=== PATIENT | male | born 1960 | race African-American/Black ===

== ENCOUNTER 2018-02-17 01:22 | Emergency (ER) | payer MEDICAID ==
[~2018-02-17] VITALS: Ht 177.8 cm; Wt 88.5 kg
[~2018-02-17 01:22] MED LIST: ALEVE220 M2 PO; CIPROFLOXACIN500 M2 ORAL; HYDROCODON-ACE1 EA15 ORAL; METRONIDAZOLE500 MG ORAL; PEPTO-BISMOL262 MG PO
--- NOTE | 2018-02-17 01:37 | Emergency Room Report ---
History of Present Illness General Chief Complaint: To Be Triaged Source: Patient Present Illness HPI Is a 57-year-old male with no past medical history. He said he is pretty active with doing yoga and triathlon. He presents with chief complaint of chest pain. Onset was about 4-5 hours ago. Described the pain as pressure- like left chest area. Took Zantac without relief. He came in because he has achiness and pain to the left arm area. No nausea no vomiting but no fever chills but no diaphoresis. No exertional component. He took 2 full dose aspirin at around 10:30 PM. Allergies: Coded Allergies: No Known Allergies (Unverified , 04/07/14) Patient History Past Medical History: see triage record, old chart reviewed Past Surgical History: none Pertinent Family History: other - early CAD Social History: Denies: smoking Immunizations: other Reviewed Nursing Documentation: PMH: Agreed; PSxH: Agreed Review of Systems Eye: Denies: eye pain, blurred vision ENT: Denies: ear pain, nose congestion, throat swelling Respiratory: Denies: cough, shortness of breath Cardiovascular: Reports: chest pain; Denies: palpitations Gastrointestinal: Denies: abdominal pain, diarrhea, nausea, vomiting Musculoskeletal: Denies: back pain, joint pain Skin: Denies: rash Neurological: Denies: headache, numbness Endocrine: Denies: increased thirst, increased urine Hematologic/Lymphatic: Denies: easy bruising All Other Systems: negative except mentioned in HPI Physical Exam Sp02 EP Interpretation: reviewed, normal General Appearance: well appearing, no apparent distress, alert Head: normocephalic, atraumatic Eyes: bilateral eye PERRL, bilateral eye EOMI ENT: hearing grossly normal, normal pharynx Neck: full range of motion, supple, no meningismus Respiratory: chest non-tender, lungs clear, normal breath sounds Cardiovascular #1: regular rate, rhythm, no murmur Gastrointestinal: normal bowel sounds, non tender, no mass, no organomegaly, no bruit, non-distended Musculoskeletal: back normal, gait/station normal, normal range of motion Psychiatric: mood/affect normal Skin: warm/dry Medical Decision Making Diagnostic Impression: Primary Impression: Chest pain Qualified Codes: R07.9 - Chest pain, unspecified ER Course Patient with atypical chest pain. 2 sets of troponin negative. No evidence of EKG changes. We will discharge home. No evidence of ACS, PE, dissection to name a few. Lab Results Impression labs normal EKG Diagnostic Results Rate: normal Rhythm: NSR ST Segments: no acute changes ASA given to the pt in ED: No - pt took 2 full aspirin at home Rhythm Strip Diag. Results Rhythm Strip Time: 01:37 EP Interpretation: yes Rate: 80 Rhythm: NSR, no PVC's, no ectopy Chest X-Ray Diagnostic Results Chest X-Ray Diagnostic Results : Chest X-Ray Ordered: Yes # of Views/Limited/Complete: 1 View Indication: Chest Pain EP Interpretation: Yes Interpretation: no consolidation, no effusion, no pneumothorax, no acute cardiopulmonary disease Impression: No acute disease Electronically Signed by: Brady Winchester MD Status: improved Disposition: HOME, SELF-CARE Condition: Stable Additional Instructions: Follow-up with your doctor within a week. You may benefit from outpatient stress tests or cardiology consult. Return if symptom worsen. BRADY WINCHESTER M.D. February 17, 2018 01:37
[2018-02-17] MEDS ORDERED: Nitroglycerin Subl 0.4mg tab SL PRN (01:45)
[2018-02-17 01:50] VITALS: BP 137/90
[2018-02-17 01:50] LABS: BASOPHILS % (AUTO) 1.9 % (0.0-2.0); EOSINOPHILS % (AUTO) 2.6 % (0.0-3.0); HEMATOCRIT 44.4 % (42.0-52.0); HEMOGLOBIN 15.2 G/DL (14.2-18.0); LYMPHOCYTES % (AUTO) 45.3 % (20.0-45.0); MEAN CORPUSCULAR VOLUME 91 FL (80-99); MONOCYTES % (AUTO) 9.4 % (1.0-10.0); NEUTROPHILS % (AUTO) 40.8 % (45.0-75.0); PLATELET COUNT 271 K/UL (150-450); RED BLOOD COUNT 4.88 M/UL (4.70-6.10); RED CELL DISTRIBUTION WIDTH 11.9 % (11.6-14.8); WHITE BLOOD COUNT 5.1 K/UL (4.8-10.8)
[2018-02-17 02:04] LABS: ANION GAP 9 mmol/L (5-15); BLOOD UREA NITROGEN 16 mg/dL (7-18); CARBON DIOXIDE 29 MMOL/L (21-32); CHLORIDE 102 MMOL/L (98-107); CREATININE 1.4 MG/DL (0.55-1.30); POTASSIUM 3.7 MMOL/L (3.5-5.1); SODIUM 140 MMOL/L (136-145)
[2018-02-17 02:17] LABS: ALANINE AMINOTRANSFERASE 38 U/L (12-78); ALBUMIN/GLOBULIN RATIO 1.1 (1.0-2.7); ALKALINE PHOSPHATASE 85 U/L (46-116); ASPARTATE AMINO TRANSFERASE 19 U/L (15-37); BILIRUBIN,TOTAL 0.3 MG/DL (0.2-1.0); CKMB 1.8 NG/ML (0.0-3.6); CREATINE KINASE 135 U/L (26-308)
[2018-02-17 03:45] VITALS: BP 136/86
[2018-02-17 03:47] VITALS: BP 136/86
--- NOTE | 2018-02-17 09:43 | Diagnostic Imaging Report ---
Indication: Reason For Exam: CP Technique: One view of the chest Comparison: Findings: Lungs and pleural spaces are clear. Heart size is normal. The aorta is tortuous and ectatic Impression: No acute process
--- NOTE | 2018-02-17 16:33 | Cardiology Report ---
APPROVED REPORT EKG Measurement Heart [id number] Sinus rhythm with premature supraventricular complexes Otherwise normal ECG
== END 2018-02-17 03:48 | disposition home or self-care (01) ==
LOC: EMR 01:36
DX: R07.89 Other chest pain (principal); Z82.49 Family history of ischemic heart disease and other diseases of the circulatory system
CPT/HCPCS: 36415; 71045; 80053; 82550; 82553; 84484; 85025; 93005; 99283

== ENCOUNTER 2018-02-20 11:01 | Emergency (ER) | payer MEDICAID ==
[~2018-02-20] VITALS: Ht 177.8 cm; Wt 88.5 kg
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
[2018-02-20] MEDS ORDERED: ROBAXIN-750750 MG PO (12:09)
[2018-02-20] MEDS ORDERED: IBUPROFEN600 MG ORAL (12:09)
[2018-02-20 12:18] VITALS: BP 127/82
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
== END 2018-02-20 12:18 | disposition home or self-care (01) ==
LOC: EMR 11:28
DX: S70.11XA Contusion of right thigh, initial encounter (principal); V03.99XA Pedestrian with other conveyance injured in collision with car, pick-up truck or van, unspecified whether traffic or nontraffic accident, initial encounter; Y92.414 Local residential or business street as the place of occurrence of the external cause
CPT/HCPCS: 99284

== ENCOUNTER 2018-05-05 21:35 | Emergency (ER) | payer MEDICAID ==
[~2018-05-05] VITALS: Ht 175.3 cm; Wt 87.5 kg
[2018-05-05 21:35] VITALS: BP 118/78
[~2018-05-05 21:35] MED LIST changes: +IBUPROFEN600 MG ORAL; +ROBAXIN-750750 MG PO
[2018-05-05] MEDS ORDERED: Morphine Sulfate 4mg/ml Inj (IV USE ONLY) IVP ONE (22:15)
[2018-05-05] MEDS ORDERED: Ketorolac 30mg Inj IV ONE (22:15)
[2018-05-05] MEDS ORDERED: NORCO 5-325 TA1 EACH ORAL (23:01)
[2018-05-05] MEDS ORDERED: IBUPROFEN600 MG ORAL (23:01)
[2018-05-05 23:11] VITALS: BP 125/75
[2018-05-05 23:12] VITALS: BP 125/75
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
--- NOTE | 2018-05-06 10:20 | Diagnostic Imaging Report ---
Indication: Pain Technique: XRAY Ribs 2v Uni L Comparison: None: Correlation made to chest radiograph 02/17/2018 Findings: No definite/displaced left rib fracture identified. Left lung is clear, without effusion or pneumothorax. There is some atherosclerotic calcifications in a slightly tortuous aorta. Impression: No definite/displaced left-sided rib fracture. No pneumothorax or pleural effusion.
== END 2018-05-05 23:15 | disposition home or self-care (01) ==
LOC: EDBD 21:35 → EMR 22:06
DX: S20.212A Contusion of left front wall of thorax, initial encounter (principal); S70.02XA Contusion of left hip, initial encounter; V13.4XXA Pedal cycle driver injured in collision with car, pick-up truck or van in traffic accident, initial encounter; Y92.410 Unspecified street and highway as the place of occurrence of the external cause
CPT/HCPCS: 71100; 73502; 96374; 96375; 99284; J1885; J2270